=== PATIENT | male | born 1940 | race Caucasian/White ===

== ENCOUNTER 2017-12-11 15:12 | Inpatient (IN) | payer MEDICARE, OTHER ==
[~2017-12-11] VITALS: Ht 177.8 cm; Wt 106.3 kg
--- NOTE | ~2017-12-11 | WRIGHTHP ---
[place], [place] PATIENT HISTORY AND PHYSICAL EXAM NAME: CARLTON MOHR [facility] #: [id number] UNIT #: [id number] ROOM: 504 DOCTOR: LORENA MATA MD BIRTHDATE: [birth year] DOS: 12/11/2017 HISTORY OF PRESENT ILLNESS: The patient is 77 years old, not known to me. The patient is a resident of [facility]. He has been there for about 3-4 weeks as per the patient. The patient was brought into the Emergency Room with complaints of difficulty breathing and slight cough. He was evaluated in the Emergency Room, was found to have pneumonia with elevated white cell count and was admitted. This morning, the patient states that he feels fine. He does not have any cough, he does not have shortness of breath. He denies having any chest pains or palpitations. PAST MEDICAL HISTORY: Significant for: 1. Last hospitalization about a month ago at [facility] after a fall. He was then transferred to [facility] for physical therapy. The patient was last admitted to this hospital in 2014 with syncope. 2. Benign hypertension. 3. Mixed hyperlipidemia. 4. History of prostate cancer with mets to the bone. 5. Type 2 diabetes mellitus, non-insulin dependent. 6. Chronic usage of steroids. 7. History of B12 deficiency. MEDICATIONS: He is currently on are Tylenol, clonazepam, B12 1000 b.i.d., lorazepam 0.5, Xtandi 160 daily, fenofibrate 160 daily, gabapentin 600 b.i.d. He is also on Lopid 600 b.i.d., glipizide 5 daily, Tradjenta 5 mg daily, lisinopril/hydrochlorothiazide 1 tablet b.i.d., metformin 1000 b.i.d., metoprolol 100 b.i.d., tamsulosin 0.4 mg daily, probiotic one tablet daily, prednisone 5 b.i.d. SOCIAL HISTORY: Nonsmoker. Lives at home. Right now, he is at [facility] for rehabilitation. PHYSICAL EXAMINATION: GENERAL: The patient is awake and alert and oriented, does not appear to be in any major distress. VITAL SIGNS: Blood pressure is 100/52, pulse of 107, respirations 20, temperature 97.9 with a T-max of 100.1. LUNGS: Diminished breath sounds. No wheezes heard this morning. HEART: Regular. ABDOMEN: Obese. EXTREMITIES: Without any edema. LABORATORY DATA: Chest x-ray shows bilateral pneumonia with atelectasis. Rapid flu titer was negative. White cell count was elevated at 12.6, hemoglobin 9.5, hematocrit 29.7, platelets 445. Comprehensive glucose 134, BUN 49, creatinine 2.74. Electrolytes were normal. ASSESSMENT AND PLAN: 1. The patient admitted with cough, shortness of breath, most likely from underlying bilateral pneumonia. The patient has been placed on IV antibiotics. [place], [place] PATIENT HISTORY AND PHYSICAL EXAM NAME: CARLTON MOHR UNIT #: [id number] ROOM: [facility] DOCTOR: LORENA MATA MD BIRTHDATE: [birth year] 2. Acute kidney failure in a patient with chronic kidney disease. We will discontinue lisinopril, hydrochlorothiazide as well as metformin. Continue rest of the medication. Slow IV hydration will be given for 24 hours and recheck the labs. 3. Benign hypertension, controlled. 4. Chronic usage of prednisone of unknown etiology. Right now, we will continue that. 5. Type 2 diabetes mellitus. Again, cannot give him metformin since the GFR is below 30. We will hold off on that. Instead, glipizide, and Tradjenta will be continued. LORENA MATA MD CM:HISPHYS:PATIENT HISTORY AND PHYSICAL EXAMINATION 2 [id number] LORENA MATA MD 12/12/17 1018 interface
--- NOTE | ~2017-12-11 | PR ---
[place], [place] PROGRESS NOTE NAME: CARLTON MOHR UNIT #: [id number] ROOM: 504 DOCTOR: LORENA MATA MD BIRTHDATE: [birth year] DOS: 12/14/2017 SUBJECTIVE: The patient says that he does not have much prep this morning. OBJECTIVE EXAMINATION: GENERAL: He is awake and alert and oriented. His Cavazos catheter was removed yesterday and he has been voiding well. VITAL SIGNS: Blood pressure is 118/53, pulse of 82, respirations 18 and temperature 98.3. LUNGS: Diminished breath sounds. No wheezes, rales or rhonchi heard. HEART: Regular. ABDOMEN: Obese, soft. EXTREMITIES: Without any edema. LABORATORY DATA: Blood sugar has been running pretty low at 66 and 72. Chest x-ray shows left lower lobe pneumonia, which is unchanged. Urine culture shows 2 different bacteria, gram-positive and gram-negative. We have identification on the gram negative, which is Proteus mirabilis. The other one is still pending. White cell count is normal at 5.9, hemoglobin 9.7, hematocrit 30.1 and platelets were 418. BMP: Glucose 53, BUN 58, creatinine 2.29, sodium 133 and potassium 3.4. ASSESSMENT AND PLAN: 1. Urinary tract infection with multiple bacteria. Awaiting the final culture. Change antibiotics. 2. Chronic kidney disease with acute kidney failure, possibly from the acute tubular necrosis from infection, which is improving slowly. Nephrotoxic meds have been discontinued. 3. Adult failure to thrive. Physical therapy/occupational therapy has been consulted. 4. Type 2 diabetes mellitus with hypoglycemia. We will discontinue the glipizide. Social Service will be consulted with discharge planning. LORENA MATA MD CM:PNTRANS [phone] LORENA MATA MD 12/14/17 3895 interface
--- NOTE | ~2017-12-11 | DS ---
[place], [place] DISCHARGE SUMMARY [id number] UN[facility] #: [id number] ROOM: 504 DOCTOR: LORENA MATA MD BIRTHDATE: [birth year] DOS: 12/15/2017 The patient is 77-year-old patient who was admitted to the hospital on 12/11/2017 and discharged on 12/15/2017. DIAGNOSES: 1. Urinary tract infection with Proteus mirabilis and Enterococcus faecalis, sensitive to penicillin. 2. Acute kidney injury. 3. Cavazos catheter, which was removed. 4. History of retention of urine. 5. Benign hypertension. 6. Mixed hyperlipidemia. 7. History of supraventricular tachycardia. 8. History of carcinoma of prostate with mets. 9. Diabetes mellitus, non-insulin dependent, with hypoglycemia. 10. Bilateral small pneumonia with atelectasis. DISCHARGE MEDICATIONS: Breathing treatments DuoNeb t.i.d. p.r.n. for shortness of breath, Augmentin 875 twice daily for 7 days, Klonopin 0.5 at bedtime p.r.n. for anxiety, metformin has been discontinued, gabapentin 300 b.i.d., Tylenol 500 q.4 p.r.n., Zofran 8 q.6 p.r.n., Flomax 0.4 daily, probiotic 1 tablet daily, hydrocortisone for local application for hemorrhoids, fenofibrate 160 daily, Tradjenta 5 mg daily, Xtandi 160 daily, B12 1000 mcg daily. Metoprolol dosage was cut down to 50 b.i.d. DISCONTINUED MEDICATIONS: Lisinopril, hydrochlorothiazide, glipizide and metformin. HOSPITAL COURSE: The patient is 77 years old, not known to me. The patient arrives from [facility] after being found to have cough and shortness of breath. The patient was sent to the emergency room where he was evaluated and after evaluation, he was found to have small bilateral pneumonia with atelectasis and he was admitted. He had a chronic indwelling Cavazos catheter, which he received about a month ago at another hospital. This was discontinued and bladder training exercises were given and he is voiding well. Pneumonia with atelectasis was treated with antibiotics. The patient was found to have acute kidney injury, which is multifactorial. He does have chronic kidney disease. His lisinopril, hydrochlorothiazide, metformin have been discontinued and he is continued on Tradjenta. His blood sugars have been running low and his glipizide also has been discontinued. His pressures have run low and so metoprolol dosage was cut back, but he did have a run of SVT and the dosage has been readjusted. The patient is overall stable and improved and is not having any new complaints and would require continued PT, OT. The patient is stable. The plan is to discharge him back to the intermediate and follow up as an outpatient. [place], [place] DISCHARGE SUMMARY NAME: CARLTON MOHR UNIT #: [id number] ROOM: [facility] DOCTOR: LORENA MATA MD BIRTHDATE: [birth year] LORENA MATA MD CM:ARLIN [id number] LORENA MATA MD 12/15/17 1328 interface
--- NOTE | ~2017-12-11 | PR ---
[place], [place] PROGRESS NOTE NAME: CARLTON MOHR UNIT #: [id number] ROOM: 504 DOCTOR: LORENA MATA MD BIRTHDATE: [birth year] DOS: 12/13/2017 SUBJECTIVE: The patient is resting comfortably. He looks better than yesterday. Overall, he does not have any complaints. He states his chest congestion is subsiding. OBJECTIVE: VITAL SIGNS: Graphic trend shows a pressure of 112/58, pulse of 111, respirations 20, temperature 98.5. He has been afebrile for the last 24 hours. LUNGS: Diminished breath sounds, clear. HEART: Regular. ABDOMEN: Obese, soft. EXTREMITIES: Without any edema. Cavazos catheter draining clear urine. LABORATORY DATA: Blood cultures negative. Urine culture shows Gram-negative bacteria and Gram-positive cocci, no identification yet. Glucose 94, BUN 62, creatinine 2.66, sodium 136, potassium 3.7. ASSESSMENT AND PLAN: 1. Stage IV kidney disease, acute kidney failure in a patient with chronic kidney disease from a combination of factors, possibly from underlying infectious process. We will decide on readjusting antibiotics once we have the identification. We will discontinue Levaquin for right now at the current dosage and lower the dosage to 250. 2. Indwelling Cavazos catheter. The patient apparently has had it for close to a month as per the the patient. We will try to discontinue catheter after giving him bladder training exercises. The patient claims that he is no longer taking the prednisone, which will be discontinued. 3. Adult failure to thrive. PT/OT will be consulted and child welfare social worker has been consulted for discharge back to the alf. LORENA MATA MD CM:PNTRANS 0 LORENA MATA MD 12/13/1741 interface
--- NOTE | ~2017-12-11 | PR ---
[place], [place] PROGRESS NOTE NAME: CARLTNO MOHR UNIT #: [id number] ROOM: 504 DOCTOR: LORENA MATA MD BIRTHDATE: [birth year] DOS: SUBJECTIVE: The patient did have a run of SVT yesterday, but seems to be doing well, does not have any shortness of breath. He states he has a lot of gas. OBJECTIVE: VITAL SIGNS: Graphic trend shows blood pressure 108/60, pulse of 100, respirations 16, temperature 98. LUNGS: Diminished breath sounds, clear. HEART: Regular. ABDOMEN: Obese, soft. EXTREMITIES: Without any edema. ASSESSMENT AND PLAN: 1. Acute kidney injury in a patient with chronic kidney disease, which is improving. 2. Chronic urinary retention with Cavazos catheter, which was discontinued and he is voiding well. 3. History of cancer prostate with metastasis, most likely responsible for the high ESR and CRP. 4. Urinary tract infection. I am still waiting for the final culture reports, so we can [facility]. 5. Supraventricular tachycardia, already on beta blockers. Cardiology consultation was obtained. 6. Bilateral small pneumonia, which is clinically and radiologically better. LORENA MATA MD CM:PNTRANS [phone] LORENA MATA MD 12/15/17 1344 interface
[~2017-12-11 15:12] MED LIST: B12-METHYL1000 MCG PO; CIPRO500 MG PO; CLONAZEPAM1 MG PO; GEMFIBROZIL600 MG PO; LISINOPRIL HCTZ1 TA1 PO; LOPRESSOR100 MG PO; METFORMIN HCL1000 MG PO; METFORMIN HCL500 M1 PO; METFORMIN HCL500 MG PO; NEURONTIN300 MG PO; PREDNISONE5 MG PO; PROTONIX TR40 MG PO; TRAD5TAB1 PO; ZYTIGA PO
[2017-12-11 15:21] VITALS: BP 116/98
[2017-12-11 16:00] VITALS: BP 116/98
[2017-12-11 16:48] LABS: BASO % 0.3 % (0.0-1.0); EOS % 0.2 % (1.0-4.0); HEMATOCRIT 29.7 % (42.0-52.0); HEMOGLOBIN 9.5 g/dl (14.0-18.0); LYMPH % 7.7 % (27.0-41.0); MEAN CORPUSCULAR HGB 28.8 pg (27.0-31.0); MEAN PLATELET VOLUME 9.7 fl (9.6-12.3); MONO # 0.7 10*3/uL (0.1-1.0); MONO % 5.8 % (3.0-9.0); NEUT # 10.7 10*3/uL (2.3-7.9); NEUT % 85.4 % (47.0-73.0); PLATELET COUNT AUTOMATED 445 10*3/uL (130-400); RED CELL DISTRI WIDTH 14.1 % (0-14.5); WHITE BLOOD COUNT 12.6 10*3/uL (4.8-10.8)
[2017-12-11 16:59] LABS: ACT PARTIAL THROMBO TIME 37.8 SECONDS (20.8-31.5); INTERNATIONAL NORM RATIO 1.2 (2.0-3.5)
[2017-12-11 17:00] VITALS: BP 116/98
[2017-12-11 17:04] LABS: ALBUMIN 2.1 gm/dl (3.1-4.5); CREATININE 2.74 mg/dL (0.70-1.30); POTASSIUM 3.6 mmol/L (3.5-5.1); TOTAL PROTEIN 6.5 gm/dL (6.4-8.2)
[2017-12-11 17:05] LABS: TROPONIN I 0.018 ng/ml (<0.045)
[2017-12-11 19:15] VITALS: BP 157/62
[2017-12-11 20:00] VITALS: BP 157/63; BP 166/85
[2017-12-11] MEDS ORDERED: MAPAP500 MG PO (20:24)
[2017-12-11] MEDS ORDERED: ONDANSETRON8 MG PO (20:25)
[2017-12-11] MEDS ORDERED: FLOMAX0.4 MG PO (20:25)
[2017-12-11] MEDS ORDERED: PROBIOTIC250 MG PO (20:26)
[2017-12-11] MEDS ORDERED: HYDROCORTISONE59 M1 T (20:28)
[2017-12-11] MEDS ORDERED: GLIPIZIDE5 MG PO (20:29)
[2017-12-11] MEDS ORDERED: FENOFIBRATE160 MG PO (20:29)
[2017-12-11] MEDS ORDERED: LOPRESSOR100 M1 PO (20:30)
[2017-12-11] MEDS ORDERED: TRAD5TAB1 PO (20:31)
[2017-12-11] MEDS ORDERED: LOPID600 M1 PO (20:31)
[2017-12-11] MEDS ORDERED: XTANDI40 M1 PO (20:32)
[2017-12-11] MEDS ORDERED: B-12500 MC1 PO (20:38)
[2017-12-12] VITALS: BP 115/59
[2017-12-12 01:06] LABS: BILIRUBIN 1+ (NEGATIVE); BLOOD 2+ (NEGATIVE); CLARITY TURBID (CLEAR); COLOR YELLOW (YELLOW); GLUCOSE NEGATIVE (NEGATIVE); KETONE TRACE (NEGATIVE); LEUKO ESTERASE 3+ (NEGATIVE); NITRITE NEGATIVE (NEGATIVE); PH >= 9.0 (5.0-9.0); SPECIFIC GRAVITY <= 1.005 (1.005-1.030); UROBILINOGEN 0.2 E.U./dl (0.2-1.0)
[2017-12-12 02:13] LABS: WBC 21-30 wbc/hpf (0-5)
[2017-12-12 02:14] LABS: BACTERIA 4+
[2017-12-12 08:00] VITALS: BP 100/52
[2017-12-12 16:00] VITALS: BP 101/47
[2017-12-12 20:00] VITALS: BP 98/46
[2017-12-12 21:40] VITALS: BP 102/52
[2017-12-13] VITALS: BP 126/88
[2017-12-13 07:16] LABS: EOS % 0.5 % (1.0-4.0); HEMATOCRIT 28.3 % (42.0-52.0); HEMOGLOBIN 9.2 g/dl (14.0-18.0); LYMPH # 0.4 10*3/uL (1.3-4.4); MEAN CORPUSCULAR HGB 28.9 pg (27.0-31.0); MEAN CORPUSCULAR HGB CONC 32.5 g/dl (33.0-37.0); MEAN PLATELET VOLUME 9.7 fl (9.6-12.3); MONO # 0.5 10*3/uL (0.1-1.0); MONO % 6.3 % (3.0-9.0); NEUT # 7.4 10*3/uL (2.3-7.9); NEUT % 87.4 % (47.0-73.0); PLATELET COUNT AUTOMATED 433 10*3/uL (130-400); RED BLOOD COUNT 3.18 10*6/uL (4.50-5.90); WHITE BLOOD COUNT 8.5 10*3/uL (4.8-10.8)
[2017-12-13 07:41] LABS: ALBUMIN 2.1 gm/dl (3.1-4.5); POTASSIUM 3.7 mmol/L (3.5-5.1); TOTAL PROTEIN 6.6 gm/dL (6.4-8.2)
[2017-12-13 07:59] LABS: CREATININE 2.66 mg/dL (0.70-1.30)
[2017-12-13 08:00] VITALS: BP 112/58
[2017-12-13 12:00] VITALS: BP 90/50
[2017-12-13 16:00] VITALS: BP 98/62
[2017-12-13 19:56] VITALS: BP 100/64
[2017-12-14] VITALS: BP 90/61
[2017-12-14 02:52] VITALS: BP 104/68
[2017-12-14 07:53] LABS: BASO % 0.3 % (0.0-1.0); EOS # 0.1 10*3/uL (0.0-0.4); EOS % 1.4 % (1.0-4.0); HEMATOCRIT 30.1 % (42.0-52.0); HEMOGLOBIN 9.7 g/dl (14.0-18.0); LYMPH # 0.6 10*3/uL (1.3-4.4); LYMPH % 10.5 % (27.0-41.0); MEAN CELL VOLUME 88.3 fl (80.0-94.0); MEAN CORPUSCULAR HGB 28.4 pg (27.0-31.0); MEAN CORPUSCULAR HGB CONC 32.2 g/dl (33.0-37.0); MEAN PLATELET VOLUME 9.6 fl (9.6-12.3); MONO # 0.5 10*3/uL (0.1-1.0); NEUT # 4.7 10*3/uL (2.3-7.9); NEUT % 78.6 % (47.0-73.0); PLATELET COUNT AUTOMATED 418 10*3/uL (130-400); RED BLOOD COUNT 3.41 10*6/uL (4.50-5.90); RED CELL DISTRI WIDTH 14.3 % (0-14.5); WHITE BLOOD COUNT 5.9 10*3/uL (4.8-10.8)
[2017-12-14 08:00] VITALS: BP 118/53
[2017-12-14 08:07] LABS: CREATININE 2.29 mg/dL (0.70-1.30); POTASSIUM 3.4 mmol/L (3.5-5.1)
[2017-12-14 12:00] VITALS: BP 104/50
[2017-12-14 16:00] VITALS: BP 138/86
[2017-12-14 20:00] VITALS: BP 107/55
[2017-12-15] VITALS: BP 122/64
[2017-12-15 07:01] LABS: BASO % 0.4 % (0.0-1.0); EOS # 0.1 10*3/uL (0.0-0.4); EOS % 1.2 % (1.0-4.0); HEMATOCRIT 31.7 % (42.0-52.0); HEMOGLOBIN 10.5 g/dl (14.0-18.0); LYMPH # 0.5 10*3/uL (1.3-4.4); LYMPH % 6.7 % (27.0-41.0); MEAN CELL VOLUME 86.8 fl (80.0-94.0); MEAN CORPUSCULAR HGB 28.8 pg (27.0-31.0); MEAN CORPUSCULAR HGB CONC 33.1 g/dl (33.0-37.0); MEAN PLATELET VOLUME 9.5 fl (9.6-12.3); MONO # 0.5 10*3/uL (0.1-1.0); MONO % 6.7 % (3.0-9.0); NEUT # 6.4 10*3/uL (2.3-7.9); PLATELET COUNT AUTOMATED 409 10*3/uL (130-400); RED BLOOD COUNT 3.65 10*6/uL (4.50-5.90); RED CELL DISTRI WIDTH 14.2 % (0-14.5); WHITE BLOOD COUNT 7.7 10*3/uL (4.8-10.8)
[2017-12-15 07:34] LABS: CREATININE 1.82 mg/dL (0.70-1.30); POTASSIUM 3.4 mmol/L (3.5-5.1)
[2017-12-15 07:40] VITALS: BP 108/60
[2017-12-15 08:00] VITALS: BP 108/60
[2017-12-15 09:06] VITALS: BP 108/60
[2017-12-15] MEDS ORDERED: AUGMENTIN 875875 MG PO (09:21)
[2017-12-15] MEDS ORDERED: LOPRESSOR100 M1 PO (09:21)
[2017-12-15] MEDS ORDERED: DUONEB 3 MG/3 ML3 M1 NEB (09:21)
[2017-12-15 17:55] VITALS: BP 124/72
== END 2017-12-15 17:14 | disposition other institution (70) | DRG 682 ==
LOC: ED 15:12 → EDHOLD 17:46 → 5E 17:46
PROVIDERS: Internal Medicine; Student in an Organized Health Care Education/Training Program
DX: N17.9 Acute kidney failure, unspecified (principal); J15.6 Pneumonia due to other Gram-negative bacteria; J80 Acute respiratory distress syndrome; E11.22 Type 2 diabetes mellitus with diabetic chronic kidney disease; E11.42 Type 2 diabetes mellitus with diabetic polyneuropathy; I47.1 Supraventricular tachycardia; E11.649 Type 2 diabetes mellitus with hypoglycemia without coma; N39.0 Urinary tract infection, site not specified; J98.11 Atelectasis; N18.4 Chronic kidney disease, stage 4 (severe); Z66 Do not resuscitate; B96.4 Proteus (mirabilis) (morganii) as the cause of diseases classified elsewhere; B95.2 Enterococcus as the cause of diseases classified elsewhere; R33.9 Retention of urine, unspecified; E78.2 Mixed hyperlipidemia; I12.9 Hypertensive chronic kidney disease with stage 1 through stage 4 chronic kidney disease, or unspecified chronic kidney disease; R62.7 Adult failure to thrive; Z96.651 Presence of right artificial knee joint; Z83.3 Family history of diabetes mellitus; Z98.49 Cataract extraction status, unspecified eye; Z85.46 Personal history of malignant neoplasm of prostate; Z79.899 Other long term (current) drug therapy; Z79.84 Long term (current) use of oral hypoglycemic drugs; Z79.52 Long term (current) use of systemic steroids; Z85.830 Personal history of malignant neoplasm of bone